=== PATIENT | male | born 1970 | race Caucasian/White ===

== ENCOUNTER 2020-11-07 12:54 | Inpatient (IN) | payer BC ==
[~2020-11-07] VITALS: Ht 182.9 cm; Wt 117.9 kg
[2020-11-07 14:53] LABS: HEMOGLOBIN 15.4 gm/dl (14.0-17.5); RED BLOOD COUNT 5.14 M/UL (4.20-5.50); WHITE BLOOD COUNT 5.9 K/UL (4.5-11.0)
[2020-11-07 15:08] LABS: BUN/CREATININE RATIO 15 (0-10)
[2020-11-07] MEDS ORDERED: TEMAZEPAM30 MG PO (17:54)
[2020-11-07] MEDS ORDERED: PREDNISONE10 MG PO (17:55)
[2020-11-07] MEDS ORDERED: ALBUTEROL2.5 MG/3 M INH (17:55)
[2020-11-07] MEDS ORDERED: VENTOLIN HFA 66.7 GM INH (17:55)
[2020-11-07] MEDS ORDERED: FLOMAX 0.4 MG0.4 MG PO (17:56)
[2020-11-07] MEDS ORDERED: TRELEGY ELLIPT1 EAC1 INH (17:57)
[2020-11-07] MEDS ORDERED: SILDENAFIL20 MG PO (17:57)
[2020-11-07] MEDS ORDERED: TESTOSTERO200 MG/1 M IM (17:58)
[2020-11-08 03:49] LABS: HEMOGLOBIN 13.8 gm/dl (14.0-17.5)
[2020-11-08 03:54] LABS: RED BLOOD COUNT 4.62 M/UL (4.20-5.50); WHITE BLOOD COUNT 3.3 K/UL (4.5-11.0)
[2020-11-08 04:48] LABS: BUN/CREATININE RATIO 15 (0-10)
[2020-11-09 04:51] LABS: HEMOGLOBIN 12.4 gm/dl (14.0-17.5); RED BLOOD COUNT 4.19 M/UL (4.20-5.50)
[2020-11-09 04:55] LABS: WHITE BLOOD COUNT 6.2 K/UL (4.5-11.0)
[2020-11-09 05:42] LABS: BUN/CREATININE RATIO 19 (0-10)
[2020-11-10 07:44] LABS: BUN/CREATININE RATIO 21 (0-10)
[2020-11-11 07:09] LABS: BUN/CREATININE RATIO 28 (0-10)
[2020-11-12] MEDS ORDERED: DECADRON6 MG PO (14:32)
== END 2020-11-12 17:46 | disposition home or self-care (01) | DRG 871 ==
LOC: ER1 12:54 → M/S 16:11 → CDU 16:11 → M/S 19:51
PROVIDERS: Preventive Medicine Occupational Medicine; ADMIT Internal Medicine
PROC: XW13325 Transfusion of Convalescent Plasma (Nonautologous) into Peripheral Vein, Percutaneous Approach, New Technology Group 5 (ICD-10-PCS; principal; 2020-11-07)
PROC: XW033E5 Introduction of Remdesivir Anti-infective into Peripheral Vein, Percutaneous Approach, New Technology Group 5 (ICD-10-PCS; 2020-11-07)
PROC: 8E0ZXY6 Isolation (ICD-10-PCS; 2020-11-07)
DX: A41.9 Sepsis, unspecified organism (principal); U07.1 COVID-19; J12.82 Pneumonia due to coronavirus disease 2019; J96.01 Acute respiratory failure with hypoxia; R65.20 Severe sepsis without septic shock; F41.9 Anxiety disorder, unspecified; N40.0 Benign prostatic hyperplasia without lower urinary tract symptoms; D86.9 Sarcoidosis, unspecified; Z79.899 Other long term (current) drug therapy
CPT/HCPCS: 36415; 71045; 71275; 80048; 80053; 82550; 82553; 83605; 83690; 83735; 83874; 84484; 85025; 85379; 85610; 86140; 86900; 86901; 86927; 87040; 87081; 90471; 93005; 94640; 94664; 94760; 96365; 96366; 96375; 96376; 99285; J1100; J1650; J2185; J2405; J7030; Q9967

== ENCOUNTER → 2021-02-03 | Outpatient (CLI) | payer BC ==
[~2021-02-03] MED LIST: ALBUTEROL2.5 MG/3 M INH; DECADRON6 MG PO; FLOMAX 0.4 MG0.4 MG PO; PREDNISONE10 MG PO; SILDENAFIL20 MG PO; TEMAZEPAM30 MG PO; TESTOSTERO200 MG/1 M IM; TRELEGY ELLIPT1 EAC1 INH; VENTOLIN HFA 66.7 GM INH
== END ==
LOC: HEART 5 10:31
DX: J30.9 Allergic rhinitis, unspecified (principal); J45.50 Severe persistent asthma, uncomplicated; Z00.00 Encounter for general adult medical examination without abnormal findings; R59.0 Localized enlarged lymph nodes; D86.0 Sarcoidosis of lung
CPT/HCPCS: 94060; 94729

== ENCOUNTER → 2021-03-10 | Outpatient (CLI) | payer BC | LOC: CT 03-05 09:00 | DX: D86.0 Sarcoidosis of lung (principal); R59.0 Localized enlarged lymph nodes | CPT/HCPCS: 71260; 94060; Q9967 ==

== ENCOUNTER → 2021-03-10 | Outpatient (CLI) | payer BC | LOC: HEART 5 10:57 | DX: J45.50 Severe persistent asthma, uncomplicated (principal) | CPT/HCPCS: 94060 ==

== ENCOUNTER → 2022-01-28 | Outpatient (CLI) | payer BC | LOC: EXRD 14:35 | DX: D86.0 Sarcoidosis of lung (principal); R91.8 Other nonspecific abnormal finding of lung field | CPT/HCPCS: 71046 ==